=== PATIENT | female | born 1985 | race Caucasian/White ===

== ENCOUNTER 2022-01-19 05:27 | Emergency (ER) | payer OTHER ==
[~2022-01-19] VITALS: Ht 152.4 cm; Wt 49.4 kg
[2022-01-19] MEDS ORDERED: ADMELOG100 UNIT/2 SC (05:44)
[2022-01-19] MEDS ORDERED: BASAGLAR K100 UNIT/3 SC (05:44)
[2022-01-19 08:30] LABS: Influenza A, PCR NEGATIVE (NEGATIVE); Influenza B, PCR NEGATIVE (NEGATIVE); Resp Syncytial Virus, PCR NEGATIVE (NEGATIVE); SARS-Cov-2 (COVID-19) PCR, MMC NEGATIVE (NEGATIVE)
== END 2022-01-19 11:42 | disposition home or self-care (01) ==
LOC: ER 05:27
PROVIDERS: Student in an Organized Health Care Education/Training Program
DX: J40 Bronchitis, not specified as acute or chronic (principal); J06.9 Acute upper respiratory infection, unspecified; E11.9 Type 2 diabetes mellitus without complications; F17.210 Nicotine dependence, cigarettes, uncomplicated; Z20.822 Contact with and (suspected) exposure to COVID-19; Z88.5 Allergy status to narcotic agent; Z88.0 Allergy status to penicillin; Z79.4 Long term (current) use of insulin
CPT/HCPCS: 0241U; 71046; 94640; 94664; 99284-25

== ENCOUNTER 2022-07-13 06:36 | Emergency (ER) | payer OTHER ==
[~2022-07-13] VITALS: Ht 152.4 cm; Wt 51.3 kg
[~2022-07-13 06:36] MED LIST: ADMELOG100 UNIT/2 SC; BASAGLAR K100 UNIT/3 SC
[2022-07-13 07:12] LABS: BASOPHILS ABSOLUTE AUTO 0.11 K/mm3 (0.00-0.23); BASOPHILS PERCENT AUTO 1 % (0-2); EOSINOPHILS ABSOLUTE AUTO 0.41 K/mm3 (0.00-0.68); EOSINOPHILS PERCENT AUTO 4 % (0-6); Hematocrit 38.6 % (33.0-51.0); Hemoglobin 13.1 g/dL (11.5-16.0); IMMATURE GRAN ABSOLUTE AUTO 0.04 K/mm3 (0.00-0.10); IMMATURE GRAN PERCENT AUTO 0 % (0-1); LYMPHOCYTES ABSOLUTE AUTO 1.57 K/mm3 (0.84-5.20); LYMPHOCYTES PERCENT AUTO 13 % (21-46); MONOCYTES ABSOLUTE AUTO 0.57 K/mm3 (0.16-1.47); MONOCYTES PERCENT AUTO 5 % (4-13); Mean Corpuscular HGB Conc 33.9 g/dL (31.5-36.5); Mean Corpuscular Volume 91 fL (80-100); Mean Platelet Volume 10.8 fL (9.1-12.4); NEUTROPHILS ABSOLUTE AUTO 9.14 K/mm3 (1.96-9.15); NEUTROPHILS PERCENT AUTO 77 % (41-73); Platelet Count 323 K/mm3 (150-400); RDW Coefficient Variation 12.8 % (11.7-14.2); RDW Standard Deviation 42.9 fL (35.1-46.3); Red Blood Cell Count 4.23 M/mm3 (3.80-5.20); White Blood Cell Count 11.84 K/mm3 (4.00-11.30)
[2022-07-13 07:48] LABS: Albumin, Blood 3.6 g/dL (3.4-5.0); Bilirubin, Total 0.6 mg/dL (0.1-1.0); Bun/Creatinine Ratio 19.6 (12.0-20.0); Calcium, Blood 7.8 mg/dL (8.5-10.1); Creatinine, Blood 0.51 mg/dL (0.40-1.00); Globulin, Blood 3.5 g/dL (2.2-4.0); Potassium, Blood 3.8 mmol/L (3.5-5.5); Total Protein, Blood 7.1 g/dL (6.4-8.2)
[2022-07-13 07:50] LABS: Magnesium, Blood 1.9 mg/dL (1.6-2.4)
[2022-07-13 08:31] LABS: Base Excess Venous 0 mmol/L; Bicarbonate Venous 24.3 mmol/L (24.0-30.0); PCO2 Venous 40.5 mmHg (38-42)
[2022-07-13 08:53] LABS: Influenza A, PCR NEGATIVE (NEGATIVE); Influenza B, PCR NEGATIVE (NEGATIVE); Resp Syncytial Virus, PCR NEGATIVE (NEGATIVE); SARS-Cov-2 (COVID-19) PCR, MMC NEGATIVE (NEGATIVE)
[2022-07-13 09:57] LABS: Source, Urine Clean Catch
[2022-07-13 10:02] LABS: Appearance, Urine Clear (Clear); Bilirubin, Urine Neg (Neg); Blood, Urine 1+ (Neg); Color, Urine Yellow (P-Yellow); Glucose Qualitative, Urine 4+ (Neg); Ketones, Urine 3+ (Neg); Leukocyte Esterase, Urine Neg (Neg); Nitrite, Urine Pos (Neg); Protein, Urine Neg (Neg); Specific Gravity, Urine 1.015 (1.003-1.022); Urobilinogen, Urine NORM (Normal)
[2022-07-13 10:12] LABS: Bacteria Few /hpf; Red Blood Cells, Urine 0-2 /hpf (0-2); Squamous Epithelial Cells Few /hpf (Few)
[2022-07-13] MEDS ORDERED: ONDA4ODT MM (10:23)
[2022-07-14] MEDS ORDERED: ESCI10 PO (21:18)
[2022-07-14] MEDS ORDERED: INSULIN GL100 UNIT/2 SC (21:18)
[2022-07-14] MEDS ORDERED: Ventolin/Prove6.7 GM INH (21:19)
[2022-07-14] MEDS ORDERED: INSULIN LI100 UNIT/6 SC (21:20)
[2022-07-14] MEDS ORDERED: METO10 PO (22:19)
== END 2022-07-13 11:17 | disposition home or self-care (01) ==
LOC: ER 06:36
PROVIDERS: Student in an Organized Health Care Education/Training Program
DX: R11.2 Nausea with vomiting, unspecified (principal); R10.13 Epigastric pain; E10.9 Type 1 diabetes mellitus without complications; F17.210 Nicotine dependence, cigarettes, uncomplicated; Z20.822 Contact with and (suspected) exposure to COVID-19; Z88.0 Allergy status to penicillin; Z88.5 Allergy status to narcotic agent
CPT/HCPCS: 0241U; 36415; 80053; 81001; 82803; 82947; 83690; 83735; 85025; 93005; 93010; 96361; 96374; 96375; 99285-25; J1790; J2405; J3010; J7030

== ENCOUNTER 2022-07-14 18:39 | Emergency (ER) | payer OTHER ==
[~2022-07-14] VITALS: Ht 154.9 cm; Wt 51.3 kg
[~2022-07-14 18:39] MED LIST changes: +ONDA4ODT MM
[2022-07-14 19:04] LABS: Base Excess Venous -1.6 mmol/L; Bicarbonate Venous 23.7 mmol/L (24.0-30.0); PCO2 Venous 32.2 mmHg (38-42)
[2022-07-14 19:05] LABS: pH Blood Venous 7.45 (7.34-7.37)
[2022-07-14 19:06] LABS: BASOPHILS ABSOLUTE AUTO 0.11 K/mm3 (0.00-0.23); BASOPHILS PERCENT AUTO 1 % (0-2); EOSINOPHILS ABSOLUTE AUTO 0.06 K/mm3 (0.00-0.68); EOSINOPHILS PERCENT AUTO 0 % (0-6); Hemoglobin 12.9 g/dL (11.5-16.0); IMMATURE GRAN ABSOLUTE AUTO 0.09 K/mm3 (0.00-0.10); IMMATURE GRAN PERCENT AUTO 1 % (0-1); LYMPHOCYTES ABSOLUTE AUTO 1.96 K/mm3 (0.84-5.20); LYMPHOCYTES PERCENT AUTO 10 % (21-46); MONOCYTES PERCENT AUTO 3 % (4-13); Mean Corpuscular HGB 30.1 pg (26.0-34.0); Mean Corpuscular HGB Conc 33.1 g/dL (31.5-36.5); Mean Corpuscular Volume 91 fL (80-100); Mean Platelet Volume 10.5 fL (9.1-12.4); NEUTROPHILS ABSOLUTE AUTO 16.82 K/mm3 (1.96-9.15); NEUTROPHILS PERCENT AUTO 86 % (41-73); Platelet Count 339 K/mm3 (150-400); RDW Coefficient Variation 13.1 % (11.7-14.2); RDW Standard Deviation 43.9 fL (35.1-46.3); Red Blood Cell Count 4.29 M/mm3 (3.80-5.20); White Blood Cell Count 19.64 K/mm3 (4.00-11.30)
[2022-07-14 19:28] LABS: Albumin, Blood 3.7 g/dL (3.4-5.0); Albumin/Globulin Ratio 1.1 (0.8-1.8); Beta-hydroxybutyrate 15.5 mg/dL (0.2-2.8); Bilirubin, Total 0.9 mg/dL (0.1-1.0); Bun/Creatinine Ratio 16.7 (12.0-20.0); Calcium, Blood 7.7 mg/dL (8.5-10.1); Creatinine, Blood 0.48 mg/dL (0.40-1.00); Globulin, Blood 3.4 g/dL (2.2-4.0); Potassium, Blood 3.5 mmol/L (3.5-5.5); Total Protein, Blood 7.1 g/dL (6.4-8.2)
[2022-07-14] MEDS ORDERED: ESCI10 PO (21:18)
[2022-07-14] MEDS ORDERED: INSULIN GL100 UNIT/2 SC (21:18)
[2022-07-14] MEDS ORDERED: Ventolin/Prove6.7 GM INH (21:19)
[2022-07-14] MEDS ORDERED: INSULIN LI100 UNIT/6 SC (21:20)
[2022-07-14] MEDS ORDERED: METO10 PO (22:19)
[2022-07-14 22:25] LABS: Source, Urine Clean Catch
[2022-07-14 23:19] LABS: Appearance, Urine Hazy (Clear); Bilirubin, Urine Neg (Neg); Blood, Urine Neg (Neg); Color, Urine Yellow (P-Yellow); Glucose Qualitative, Urine 4+ (Neg); Ketones, Urine 4+ (Neg); Leukocyte Esterase, Urine Neg (Neg); Nitrite, Urine Neg (Neg); Protein, Urine Neg (Neg); Specific Gravity, Urine 1.015 (1.003-1.022); Urobilinogen, Urine NORM (Normal)
[2022-07-14 23:57] LABS: Red Blood Cells, Urine 0-2 /hpf (0-2); Squamous Epithelial Cells Mod /hpf (Few)
[2022-07-14 23:58] LABS: Bacteria Many /hpf
== END 2022-07-15 00:05 | disposition home or self-care (01) ==
LOC: ER 18:39
PROVIDERS: Student in an Organized Health Care Education/Training Program
DX: R11.2 Nausea with vomiting, unspecified (principal); R10.9 Unspecified abdominal pain; E10.9 Type 1 diabetes mellitus without complications; F17.210 Nicotine dependence, cigarettes, uncomplicated; Z88.0 Allergy status to penicillin; Z88.5 Allergy status to narcotic agent; Z79.4 Long term (current) use of insulin
CPT/HCPCS: 36415; 74177; 80053; 81001; 81025; 82010; 82803; 83690; 85025; 87077; 87086; 87186; 93005; 93010; 96374-59; 96375; 99285-25; J1790; J3010; J7030; Q9967

== ENCOUNTER 2023-05-10 09:05 | Emergency (ER) | payer OTHER ==
[~2023-05-10] VITALS: Ht 165.1 cm; Wt 72.6 kg
[~2023-05-10 09:05] MED LIST changes: +ESCI10 PO; +INSULIN GL100 UNIT/2 SC; +INSULIN LI100 UNIT/6 SC; +METO10 PO; +Ventolin/Prove6.7 GM INH
[2023-05-10 09:39] LABS: BASOPHILS ABSOLUTE AUTO 0.09 K/mm3 (0.00-0.23); BASOPHILS PERCENT AUTO 1 % (0-2); EOSINOPHILS ABSOLUTE AUTO 0.08 K/mm3 (0.00-0.68); EOSINOPHILS PERCENT AUTO 1 % (0-6); Hematocrit 38.6 % (33.0-51.0); Hemoglobin 13.3 g/dL (11.5-16.0); IMMATURE GRAN ABSOLUTE AUTO 0.02 K/mm3 (0.00-0.10); IMMATURE GRAN PERCENT AUTO 0 % (0-1); LYMPHOCYTES ABSOLUTE AUTO 1.31 K/mm3 (0.84-5.20); LYMPHOCYTES PERCENT AUTO 13 % (21-46); MONOCYTES ABSOLUTE AUTO 0.55 K/mm3 (0.16-1.47); MONOCYTES PERCENT AUTO 6 % (4-13); Mean Corpuscular HGB 30.8 pg (26.0-34.0); Mean Corpuscular HGB Conc 34.5 g/dL (31.5-36.5); Mean Corpuscular Volume 89 fL (80-100); Mean Platelet Volume 10.5 fL (9.1-12.4); NEUTROPHILS ABSOLUTE AUTO 7.78 K/mm3 (1.96-9.15); NEUTROPHILS PERCENT AUTO 79 % (41-73); Platelet Count 339 K/mm3 (150-400); RDW Coefficient Variation 12.7 % (11.7-14.2); RDW Standard Deviation 41.4 fL (35.1-46.3); Red Blood Cell Count 4.32 M/mm3 (3.80-5.20); White Blood Cell Count 9.83 K/mm3 (4.00-11.30)
[2023-05-10 09:56] LABS: Albumin, Blood 3.6 g/dL (3.4-5.0); Albumin/Globulin Ratio 1.2 (0.8-1.8); Bilirubin, Total 0.4 mg/dL (0.1-1.0); Bun/Creatinine Ratio 12.5 (12.0-20.0); Calcium, Blood 8.2 mg/dL (8.5-10.1); Creatinine, Blood 0.48 mg/dL (0.40-1.00); Potassium, Blood 3.2 mmol/L (3.5-5.5); Total Protein, Blood 6.6 g/dL (6.4-8.2)
[2023-05-10 11:36] LABS: Source, Urine Clean Catch
[2023-05-10 11:44] LABS: Bilirubin, Urine Neg (Neg); Blood, Urine Neg (Neg); Glucose Qualitative, Urine 4+ (Neg); Ketones, Urine 3+ (Neg); Leukocyte Esterase, Urine Neg (Neg); Nitrite, Urine Neg (Neg); Protein, Urine Neg (Neg); Urobilinogen, Urine NORM (Normal)
[2023-05-10 12:00] LABS: Appearance, Urine Clear (Clear); Color, Urine Yellow (P-Yellow)
[2023-05-10 13:30] VITALS: BP 127/84
== END 2023-05-10 13:41 | disposition home or self-care (01) ==
LOC: ER 09:05
PROVIDERS: Student in an Organized Health Care Education/Training Program
DX: E10.43 Type 1 diabetes mellitus with diabetic autonomic (poly)neuropathy (principal); K31.84 Gastroparesis; F41.9 Anxiety disorder, unspecified; F17.210 Nicotine dependence, cigarettes, uncomplicated; F43.10 Post-traumatic stress disorder, unspecified; F12.90 Cannabis use, unspecified, uncomplicated; E87.6 Hypokalemia; Z88.0 Allergy status to penicillin; Z88.5 Allergy status to narcotic agent; Z79.4 Long term (current) use of insulin; Z79.899 Other long term (current) drug therapy
CPT/HCPCS: 80053; 81003; 82010; 83690; 85025; 96361; 96374; 96375; 99284-25; A9270; J1790; J1885; J2405; J7030